=== PATIENT | female | born 1970 | race Caucasian/White ===

== ENCOUNTER 2020-01-30 07:05 | Emergency (ER) | payer OTHER ==
[2020-01-30 07:20] VITALS: BP 130/77; PULSE 86; TEMP 98.8; BMI 31.1
[2020-01-30] MEDS ORDERED: HYDROCORTISONE 1% TOPICAL OINT 30 GM TUBE TP ONE (07:54)
[2020-01-30] MEDS ORDERED: ACETAMINOPHEN 325 MG TABLET (FP) PO ONE (07:54)
[2020-01-30] MEDS ORDERED: diphenhydrAMINE HCL 50 MG CAPSULE PO ONE (07:54)
[2020-01-30] MEDS ORDERED: ACETAMINOPHEN 325 MG TABLET (FP) ONE (08:11)
[2020-01-30] MEDS ORDERED: diphenhydrAMINE HCL 25 MG CAPSULE (FP) PO ONE (08:11)
== END 2020-01-30 09:18 | disposition home or self-care (01) ==
LOC: JER 07:05
DX: L24.9 Irritant contact dermatitis, unspecified cause (principal)
CPT/HCPCS: 99283-25

== ENCOUNTER 2020-07-06 09:17 | Emergency (ER) | payer OTHER ==
[2020-07-06 09:27] VITALS: BP 141/81; PULSE 96; TEMP 98.2; BMI 27.8
[2020-07-06] MEDS ORDERED: ONDANSETRON 4 MG/2 ML VIAL IVPUSH ONE (09:59)
[2020-07-06] MEDS ORDERED: KETOROLAC TROMETHAMINE 30 MG/1 ML VIAL IVPUSH ONE (09:59)
[2020-07-06] MEDS ORDERED: KETOROLAC TROMETHAMINE 30 MG/1 ML VIAL ONE (10:08)
[2020-07-06] MEDS ORDERED: ONDANSETRON 4 MG/2 ML VIAL ONE (10:08)
[2020-07-06 11:08] LABS: BASO % 0.5 % (0-2.0); EOS % 2.6 % (0-4.5); HEMATOCRIT 39.6 % (32.4-45.2); HEMOGLOBIN 13.2 GM/dL (10.7-15.3); LYMPH % 37.4 % (8-40); MCH 30.2 pg (25.7-33.7); MCHC 33.4 g/dl (32.0-36.0); MEAN CELL VOLUME 90.3 fl (80-96); MEAN PLT VOLUME 8.4 fl (7.5-11.1); MONO % 8.4 % (3.8-10.2); NEUT % 51.1 % (42.8-82.8); PLATELET COUNT 271 K/MM3 (134-434); RBC 4.38 M/mm3 (3.60-5.2); RDW 13.3 % (11.6-15.6); WHITE BLOOD COUNT 4.7 K/mm3 (4.0-10.0)
[2020-07-06 11:10] LABS: PH,URINE 7.5 (5.0-8.0); URINE APPEARANCE CLEAR; URINE BILIRUBIN NEGATIVE (NEGATIVE); URINE COLOR YELLOW; URINE GLUCOSE (UA) NEGATIVE (NEGATIVE); URINE KETONE NEGATIVE (NEGATIVE); URINE LEUK ESTERASE NEGATIVE (NEGATIVE); URINE NITRITE NEGATIVE (NEGATIVE); URINE PROTEIN NEGATIVE (NEGATIVE); URINE UROBILINOGEN 0.2 mg/dL (0.2-1.0)
[2020-07-06 11:17] LABS: CHLORIDE 106 mmol/L (98-107); SODIUM 141 mmol/L (136-145)
[2020-07-06 11:19] LABS: CALCIUM 9.4 mg/dL (8.5-10.1)
[2020-07-06 11:20] LABS: ALBUMIN 3.9 g/dl (3.4-5.0); ANION GAP 6 MMOL/L (8-16); BLOOD UREA NITROGEN 14.1 mg/dL (7-18); CO2 29 mmol/L (21-32); GLUCOSE,RANDOM 90 mg/dL (74-106)
[2020-07-06 11:22] LABS: CREATININE 0.7 mg/dL (0.55-1.3); SGOT/AST 17 U/L (15-37); SGPT/ALT 33 U/L (13-61)
[2020-07-06 11:24] LABS: BILIRUBIN,TOTAL 0.4 mg/dL (0.2-1); TOT PROT 7.4 g/dl (6.4-8.2)
[2020-07-06 11:26] LABS: ALK PHOS 85 U/L (45-117)
== END 2020-07-06 12:33 | disposition home or self-care (01) ==
LOC: JER 09:17
PROC: 3E0333Z Introduction of Anti-inflammatory into Peripheral Vein, Percutaneous Approach (ICD-10-PCS; principal; 2020-07-06)
PROC: 3E033GC Introduction of Other Therapeutic Substance into Peripheral Vein, Percutaneous Approach (ICD-10-PCS; 2020-07-06)
DX: N83.201 Unspecified ovarian cyst, right side (principal)
CPT/HCPCS: 36415; 76830-TC; 80053; 81003; 84702; 85025; 87086; 96374; 96375; 99284-25

== ENCOUNTER 2022-03-20 14:08 | Emergency (ER) | payer OTHER ==
[2022-03-20 14:45] VITALS: BP 112/61; PULSE 89; RESP 18; TEMP 98; BMI 30.2
== END 2022-03-20 16:48 | disposition home or self-care (01) ==
LOC: JERFT 14:08 → JER 14:08 → JERFT 16:48
DX: R20.8 Other disturbances of skin sensation (principal); T49.95XA Adverse effect of unspecified topical agent, initial encounter
CPT/HCPCS: 99282-25

== ENCOUNTER 2022-05-24 07:12 | Emergency (ER) | payer OTHER ==
[2022-05-24 07:31] VITALS: BP 124/56; PULSE 78; RESP 16; TEMP 98.5; BMI 29.6
[2022-05-24] MEDS ORDERED: KETOROLAC TROMETHAMINE 30 MG/1 ML VIAL IM ONE (08:53)
[2022-05-24] MEDS ORDERED: KETOROLAC TROMETHAMINE 30 MG/1 ML VIAL ONE (08:56)
[2022-05-24 09:52] LABS: PH,URINE 6.5 (5.0-8.0); URINE APPEARANCE CLEAR; URINE BILIRUBIN NEGATIVE (NEGATIVE); URINE COLOR YELLOW; URINE GLUCOSE (UA) NEGATIVE (NEGATIVE); URINE KETONE NEGATIVE (NEGATIVE); URINE LEUK ESTERASE NEGATIVE (NEGATIVE); URINE NITRITE NEGATIVE (NEGATIVE); URINE PROTEIN NEGATIVE (NEGATIVE); URINE UROBILINOGEN 0.2 mg/dL (0.2-1.0)
[2022-05-24 11:08] LABS: BASO % 0.6 % (0-2.0); EOS % 1.7 % (0-4.5); HEMOGLOBIN 13.8 GM/dL (10.7-15.3); LYMPH % 42.7 % (8-40); MCH 30.8 pg (25.7-33.7); MCHC 35.4 g/dl (32.0-36.0); MEAN PLT VOLUME 8.4 fl (7.5-11.1); MONO % 8.1 % (3.8-10.2); NEUT % 46.9 % (42.8-82.8); PLATELET COUNT 276 10^3/uL (134-434); RBC 4.48 M/mm3 (3.60-5.2); RDW 13.4 % (11.6-15.6)
[2022-05-24 11:27] LABS: BLOOD UREA NITROGEN 16.7 mg/dL (7-18)
[2022-05-24 11:30] LABS: CREATININE 0.7 mg/dL (0.55-1.3)
[2022-05-24 11:32] LABS: TOT PROT 7.4 g/dl (6.4-8.2)
[2022-05-24 11:39] LABS: BILIRUBIN,TOTAL 0.8 mg/dL (0.2-1)
== END 2022-05-24 12:51 | disposition home or self-care (01) ==
LOC: JER 07:12
PROC: 3E0233Z Introduction of Anti-inflammatory into Muscle, Percutaneous Approach (ICD-10-PCS; principal; 2022-05-24)
DX: R10.2 Pelvic and perineal pain (principal)
CPT/HCPCS: 36415; 72170-TC-FY; 72192-TC; 80053; 81003; 85025; 99285-25

== ENCOUNTER 2022-07-31 19:57 | Emergency (ER) | payer OTHER ==
[2022-07-31 20:02] VITALS: BP 152/84; PULSE 90; RESP 16; TEMP 98.2; BMI 30.2
[2022-07-31] MEDS ORDERED: CLINDAMYCIN HCL 300 MG CAPSULE PO ONE (20:45)
[2022-07-31] MEDS ORDERED: CLINDAMYCIN HCL 150 MG CAPSULE (FP) ONE (20:46)
== END 2022-07-31 20:55 | disposition home or self-care (01) ==
LOC: JERFT 19:57
DX: S31.825A Open bite of left buttock, initial encounter (principal); S00.86XA Insect bite (nonvenomous) of other part of head, initial encounter; W57.XXXA Bitten or stung by nonvenomous insect and other nonvenomous arthropods, initial encounter
CPT/HCPCS: 99283-25

== ENCOUNTER 2022-08-18 06:05 | Day surgery (SDC) | payer OTHER ==
[2022-08-17 10:38] VITALS: BMI 28.3
[2022-08-18 12:23] VITALS: TEMP 96.6
[2022-08-18 14:27] VITALS: BP 105/62; PULSE 54; RESP 15
== END 2022-08-18 13:26 | disposition home or self-care (01) ==
LOC: JASU-ENDO 06:05 → MERGE 06:05 → EDUNIT# 11:30 → JASU-ENDO 13:26
PROVIDERS: ATTEND Internal Medicine Gastroenterology
PROC: 0DJD8ZZ Inspection of Lower Intestinal Tract, Via Natural or Artificial Opening Endoscopic (ICD-10-PCS; principal; 2022-08-18 11:30)
DX: Z12.11 Encounter for screening for malignant neoplasm of colon (principal)
CPT/HCPCS: 81025

== ENCOUNTER 2022-08-31 21:40 | Emergency (ER) | payer OTHER ==
[2022-08-31 21:54] VITALS: BMI 29.2
[2022-08-31] MEDS ORDERED: morphine CARPU-JECT 4 MG/1 ML DISP.SYRIN IVPUSH ONE (22:18)
[2022-08-31] MEDS ORDERED: ONDANSETRON 4 MG/2 ML VIAL IVPUSH ONE (22:18)
[2022-08-31] MEDS ORDERED: ONDANSETRON 4 MG/2 ML VIAL ONE (23:16)
[2022-08-31] MEDS ORDERED: morphine SULFATE 4 MG/ML VIAL ONE (23:16)
[2022-08-31 23:25] LABS: BASO % 0.3 % (0-2.0); EOS % 0.1 % (0-4.5); HEMATOCRIT 41.9 % (32.4-45.2); HEMOGLOBIN 14.4 GM/dL (10.7-15.3); LYMPH % 15.5 % (8-40); MCH 30.3 pg (25.7-33.7); MCHC 34.4 g/dl (32.0-36.0); MEAN CELL VOLUME 88.1 fl (80-96); MEAN PLT VOLUME 8.3 fl (7.5-11.1); MONO % 5.9 % (3.8-10.2); NEUT % 78.2 % (42.8-82.8); PLATELET COUNT 245 10^3/uL (134-434); RBC 4.75 M/mm3 (3.60-5.2); RDW 13.8 % (11.6-15.6); URINE APPEARANCE CLEAR; URINE BILIRUBIN NEGATIVE (NEGATIVE); URINE COLOR YELLOW; URINE GLUCOSE (UA) NEGATIVE (NEGATIVE); URINE KETONE NEGATIVE (NEGATIVE); URINE LEUK ESTERASE NEGATIVE (NEGATIVE); URINE NITRITE NEGATIVE (NEGATIVE); URINE PROTEIN NEGATIVE (NEGATIVE); URINE UROBILINOGEN 0.2 mg/dL (0.2-1.0); WHITE BLOOD COUNT 7.6 K/mm3 (4.0-10.0)
[2022-08-31 23:37] LABS: INR 1.09 (0.83-1.09); PROTHROMBIN TIME (PATIENT) 12.6 SEC (9.7-13.0)
[2022-08-31 23:40] LABS: ACTIVATED PTT 30.5 SECONDS (25.2-36.5)
[2022-08-31 23:47] LABS: POTASSIUM 4.2 mmol/L (3.5-5.1)
[2022-08-31 23:49] LABS: CALCIUM 8.9 mg/dL (8.5-10.1)
[2022-08-31 23:50] LABS: ALBUMIN 3.9 g/dl (3.4-5.0)
[2022-08-31 23:52] LABS: CREATININE 0.9 mg/dL (0.55-1.3)
[2022-08-31 23:54] LABS: BILIRUBIN,TOTAL 0.3 mg/dL (0.2-1); TOT PROT 7.6 g/dl (6.4-8.2)
[2022-09-01] MEDS ORDERED: ACETAMINOPHEN 1000 MG/100 ML BAG IVPB ONE (00:35)
[2022-09-01 01:21] LABS: LACTIC ACID 2.4 mmol/L (0.4-2.0)
[2022-09-01] MEDS ORDERED: ACETAMINOPHEN INJECTION 100 ML IVPB ONE (02:13)
[2022-09-01 02:33] VITALS: RESP 16
[2022-09-01] MEDS ORDERED: SODIUM CHLORIDE 0.9% 500 ML INFUS.BAG IV ONE (03:09)
[2022-09-01 05:14] VITALS: BP 103/61; PULSE 83; TEMP 99.6
== END 2022-09-01 05:20 | disposition home or self-care (01) ==
LOC: JER 21:40
PROC: 3E033GC Introduction of Other Therapeutic Substance into Peripheral Vein, Percutaneous Approach (ICD-10-PCS; principal; 2022-08-31)
PROC: 3E033GC Introduction of Other Therapeutic Substance into Peripheral Vein, Percutaneous Approach (ICD-10-PCS; 2022-08-31)
PROC: 3E033NZ Introduction of Analgesics, Hypnotics, Sedatives into Peripheral Vein, Percutaneous Approach (ICD-10-PCS; 2022-09-01)
DX: J02.9 Acute pharyngitis, unspecified (principal); M79.10 Myalgia, unspecified site; R11.2 Nausea with vomiting, unspecified; R50.9 Fever, unspecified; Z20.822 Contact with and (suspected) exposure to COVID-19
CPT/HCPCS: 0241U-QW; 36415; 74177-TC; 80053; 81003; 83605; 83690; 84484; 84703; 85025; 85610; 85730; 86850; 86900; 86901; 87040; 87070; 87077; 87086; 87651; 93005; 93010; 99285-25; Q9967